=== PATIENT | female | born 1975 | race Caucasian/White ===

== ENCOUNTER 2020-06-30 22:46 | Day surgery (SDC) | payer OTHER, SELFPAY ==
[2020-06-30 22:46] VITALS: BP 145/90; PULSE 85; RESP 22; TEMP 36.8; O2SAT 100; BMI 36.1
[2020-06-30 23:00] VITALS: BP 141/80; PULSE 94; RESP 15; O2SAT 98
[2020-06-30 23:01] VITALS: BMI 36.1
[2020-06-30 23:12] LABS: Chloride 104 mmol/L (98-107); Sodium 137 mmol/L (136-145)
[2020-06-30 23:14] LABS: Amylase 80 U/L (30-110)
[2020-06-30 23:15] LABS: Alanine Aminotransferase 19 U/L (12-78); Albumin Level 4.5 g/dl (3.5-5.0); Alkaline Phosphatase 121 U/L (38-126); Aspartate Amino Transferase 30 U/L (14-36); Bilirubin,Direct 0.3 mg/dl (0.0-0.4); Bilirubin,Indirect 0.4 mg/dL (0.0-0.9); Bilirubin,Total 0.7 mg/dl (0.2-1.3); Bilirubin,Unconjugated 0.4 mg/dL (0.0-1.1); Blood Urea Nitrogen 19 mg/dl (7-17); Calcium 9.7 mg/dl (8.4-10.2); Carbon Dioxide 24 mmol/L (22.0-30.0); Creatinine Clearance Estimated 180 mL/min (50-200); Estimated Glomerular Filt Rate 91 ml/min (>60); GFR (African American) 110 ML/MIN (>60); Glucose 100 mg/dl (74-100)
[2020-06-30 23:16] LABS: Basophils # 0.1 K/mm3 (0-0.2); Eosinophils # 0.2 K/mm3 (0.0-0.4); Eosinophils % 1.6 % (0.1-12.0); Hematocrit 51.8 % (37.0-47.0); Hemoglobin 17.1 g/dL (12.2-16.2); Lymphocytes # 4.2 K/mm3 (0.7-4.5); Lymphocytes % 39.1 % (10-50); Mean Corpuscular Hemoglobin 31.8 pg (27.0-31.2); Mean Corpuscular Volume 96.3 fl (81-99); Mean Platelet Volume 9.6 fl (7.4-10.4); Monocytes # 0.6 K/mm3 (0.1-1.0); Monocytes % 5.9 % (1.7-9.3); Neutrophils # 5.6 K/mm3 (1.8-7.8); Neutrophils % 52.3 % (37.0-80.0); Platelet Count 211 K/mm3 (142-424); Red Blood Count 5.38 M/mm3 (4.20-5.40); White Blood Count 10.7 K/mm3 (4.8-10.8)
[2020-06-30 23:30] VITALS: BP 132/82; PULSE 83; RESP 14; O2SAT 97
[2020-06-30 23:34] LABS: Troponin I < 0.01 ng/ml (0.00-0.034)
[2020-06-30 23:38] LABS: Coronavirus 19 IgG Antibody Negative (Negative); Coronavirus 19 IgM Antibody Negative (Negative)
--- NOTE | 2020-06-30 23:47 | HMH.EDCP ---
ED Disposition Clinical Impression: Obesity (BMI 30-39.9) Chest pain Qualifiers: Chest pain type: precordial pain Qualified Code(s): R07.2 - Precordial pain Disposition: Admitted as Observation Condition on Discharge: Good Referrals: PCP,No [Primary Care Provider] - - Critical Care Critical Care Time: No Attestation: On 06/30/20, the high probability of a clinically significant, sudden or life threatening deterioration of the following system(s) required my full and direct attention, intervention and personal management. The time I documented below is in addition to time spent performing reported procedures but includes the following listed in this critical care notation. Medical Decision Making - Medical Records Medical records reviewed: Yes: I reviewed the patient's medical records. - [place] Inquiry Pt receiving controlled substance: No Vital Signs: 06/30/20 22:46 06/30/20 23:00 06/30/20 23:30 Temperature 98.2 F Temperature Source Oral Pulse Rate [Right Radial] 85 94 H 83 Respiratory Rate 22 15 14 Blood Pressure [Right Arm] 145/90 H 141/80 H 132/82 Blood Pressure Mean [Right Arm] 108 100 98 Blood Pressure Source [Right Arm] Automatic Cuff Automatic Cuff Blood Pressure Position [Right Arm] Supine Supine 02 Sat by Pulse Oximetry 100 98 97 Oxygen Delivery Method Room Air Room Air Room Air - Lab Data Lab results reviewed: Yes: I reviewed the patient's lab results. Lab Results 06/30/20 22:50: WBC 10.7, RBC 5.38, Hgb 17.1 H, Hct 51.8 H, MCV 96.3, MCH 31.8 H, MCHC 33.0, RDW 14.0, Plt Count 211, MPV 9.6, Neut % (Auto) 52.3, Lymph % (Auto) 39.1, [place] % (Auto) 5.9, Eos % (Auto) 1.6, Baso % (Auto) 1.0, Neut # (Auto) 5.6, Lymph # (Auto) 4.2, [place] # (Auto) 0.6, Eos # (Auto) 0.2, Baso # (Auto) 0.1 06/30/20 22:50: Sodium 137, Potassium 4.0, Chloride 104, Carbon Dioxide 24, Anion Gap 13.0, BUN 19 H, Creatinine 0.70, Estimated Creat Clear 180, Estimated GFR 91, Est GFR ( Amer) 110, Glucose 100, Calcium 9.7, Total Bilirubin 0.7, Direct Bilirubin 0.3, Conjugated Bilirubin 0.0, Indirect Bilirubin 0.4, Unconjugated Bilirubin 0.4, AST 30, ALT 19, Alkaline Phosphatase 121, Troponin I < 0.01, Total Protein 8.0, Albumin 4.5, Amylase 80 06/30/20 22:50: Lipase 182 06/30/20 22:50: SARS-CoV-2 IgG Ab (Rapid) Negative, SARS-CoV-2 IgM Ab (Rapid) Negative 06/30/20 22:50: ESR 6 06/30/20 22:50: C-Reactive Protein 1.4 07/01/20 00:00: Triglycerides 231 H, Cholesterol 200, LDL Cholesterol Direct 103.38, VLDL Cholesterol 46 H, HDL Cholesterol 62 H, Cholesterol/HDL Ratio 3.2 Result diagrams: 06/30/20 22:50 06/30/20 22:50 Orders (Tests/Meds): ED MEDICATIONS Generic Name Dose Route Start Last Admin Trade Name Frenori PRN Reason Stop Dose Admin Sodium Chloride 1,000 mls @ 999 mls/hr 06/30/20 23:15 06/30/20 23:10 Sod Chlor 0.9% 1000ml Bag IV 07/01/20 00:15 999 mls/hr .Q1H1M ROSIE Administration Sodium Chloride 8 ml 06/30/20 23:04 Sodium Chloride 0.9% 10ml Vial IV 07/30/20 23:03 NEEDED PRN dilute pepcid Discontinued Medications Generic Name Dose Route Start Last Admin Trade Name Frenori PRN Reason Stop Dose Admin Aspirin 324 mg 06/30/20 23:04 06/30/20 23:00 Aspirin 81mg Chewable Tablet PO 06/30/20 23:05 324 mg ONCE ONE Administration Famotidine 20 mg 06/30/20 23:04 06/30/20 23:10 Famotidine 20mg/2ml Vial IV 06/30/20 23:05 20 mg ONCE ONE Administration Ketorolac Tromethamine 30 mg 06/30/20 23:04 06/30/20 23:10 Ketorolac 30mg/Ml Vial IV 06/30/20 23:05 30 mg ONCE ONE Administration Metoclopramide HCl 10 mg 06/30/20 23:04 06/30/20 23:10 Metoclopramide Hcl 10mg/2ml Vial IVP 06/30/20 23:05 10 mg ONCE ONE Administration Morphine Sulfate 4 mg 07/01/20 00:03 07/01/20 00:06 Morphine 4mg/Ml Syringe IV 07/01/20 00:04 4 mg ONCE ONE Administration Nitroglycerin 1 gm 06/30/20 23:36 06/30/20 23:39 Nitroglycerin 1 Gm Ointment TD 06/30/20 23:
[2020-06-30 23:48] LABS: Lipase 182 U/L (23-300)
--- NOTE | 2020-06-30 23:58 | ECG_ITS ---
APPROVED REPORT Exam: Resting ECG HR:94 bpm ECG Measurements Heart Rate 94 AXES CA 130 P QRSd 96 QRS -10 QT 370 T 52 QTc 462 Conclusion Normal sinus rhythm Late r wave progression Abnormal ECG Electronically signed by : Geoffrey Barrios, 07/01/2020 06:25:12
[2020-07-01] VITALS (18 sets, daily range): BP systolic 100–159; BP diastolic 44–85; PULSE 64–88; RESP 12–20; TEMP 36.6; O2SAT 93–100
--- NOTE | 2020-07-01 | IR_ITS ---
APPROVED REPORT Patient Location: Inpatient Car Dropper: MICHAEL Joe RT (R) PROCEDURES Left heart catheterization Left ventriculogram Selective coronary angiogram INDICATION Unstable angina Informed consent was obtained prior to the procedure. COMPLICATIONS none Estimated Blood Loss: less than 10 mls TECHNIQUE One percent lidocaine was used to anesthetize the right groin. The right femoral artery was accessed via the Seldinger technique. A 4-Faroese sheath was placed in the right femoral artery. The JL-4 and JR-4 catheter was also used to perform left heart catheterization left ventriculogram and selective coronary angiogram. At the end of the procedure the patient was transferred to the post-op holding area in stable condition for arterial sheath removal. ANGIOGRAPHIC RESULTS The left main artery Normal The left anterior descending artery Normal The circumflex artery Normal The right coronary artery Dominant normal The [place] ventriculogram reveals Slightly dilated with ejection fraction of 55% The left ventricular end-diastolic pressure 20 mmHg IMPRESSION Normal coronary arteries Slightly dilated ventricle with ejection fraction 55% which is slightly reduced Elevated LVEDP PLAN 1. Formal echocardiogram is warranted 2. Patient may be experiencing early myocarditis and should be monitored. I recommend a sed rate and a CRP level 3. Low-dose diuretics for diastolic dysfunction 4. Risk factor modification 5. Follow-up in cardiology clinic within the next 2 weeks and repeat echocardiogram Electronically signed by : Rajesh Saeed, 07/01/2020 12:51:16
--- NOTE | 2020-07-01 | PC.NURSE ---
pt is alert and oriented w.f. presenting earlier in ed for complaints of cp. vss. throughout stay. resting quietly with lights off in room. verbalizes understanding of having been admitted although technically physically still in ed room 1. discussed plan of care and cardiac consult for morning. understands serial troponins ordered as well as morning labs. lungs clear. resp e/u. abd soft, non tender, non distended. independent with toileting. moves all extremities without issue. call blanco placed in reach, and side rails up x 2 for safety. no complaints offered or needs voiced. I will try to rest .
[2020-07-01 00:02] LABS: C-Reactive Protein 1.4 mg/L (0-4)
--- NOTE | 2020-07-01 00:07 | XR_ITS ---
PROCEDURE: XR CHEST PORTABLE CLINICAL HISTORY: chest pain COMPARISON: No exams were available for comparison FINDINGS: The cardiomediastinal silhouette and pulmonary vascularity are within normal limits. Increased markings are present in the right infrahilar region suggesting an area of atelectasis or infiltrate versus superimposed vascular structures. PA and lateral chest may provide further evaluation. The remaining lungs are clear. No acute bony abnormalities. IMPRESSION: Possible right infrahilar infiltrate Dictated by: Rodo Smith MD 07/01/2020 05:31 Rodo Smith MD in [place] 07/01/2020 05:31
[2020-07-01 00:18] LABS: Cholesterol 200 mg/dl (140-200); Triglycerides 231 mg/dl (30-150); VLDL Cholesterol 46 mg/dL (0-40)
[2020-07-01 00:19] LABS: Chol/HDL Ratio 3.2 (1-3.5); HDL Cholesterol 62 mg/dl (40-60)
[2020-07-01 00:24] LABS: Erythrocyte Sedimentation Rate 6 mm/hr (0-20)
[2020-07-01 00:29] LABS: Direct LDL Cholesterol 103.38 mg/dL (100-129)
--- NOTE | 2020-07-01 01:35 | PC.NURSE ---
resting quietly. no complaints.
--- NOTE | 2020-07-01 02:01 | PC.NURSE ---
blood collected and sent to lab for troponin. no issues
[2020-07-01 02:45] LABS: Troponin I < 0.01 ng/ml (0.00-0.034)
--- NOTE | 2020-07-01 07:07 | CA_ITS ---
APPROVED REPORT EXAM: Comprehensive 2D, Doppler, and color-flow Echocardiogram Search Engine Marketing Strategist: Jeannette Manuel, RT(R) Ht: 5 ft 9 in Wt: 245lbs BSA: 2.25 BP: 132/82 mmHg Indications: CP, Palpitations, SOB, obesity, family history of HD 2D Dimensions LVOT 2.29 cm (M/F) 1.5-2.5 M-Mode Dimensions RVDd 2.83 cm (0.9-2.6) LA Diam 3.80 cm (1.9-4.0) LVDd 4.87 cm (3.5-5.7) Ao Diam 3.41 cm (2.0-3.7) LVDs 3.33 cm (3.5-5.7) IVSd 1.00 cm (0.6-1.1) PWd 0.97 cm (0.6-1.1) EF (Teich) 59.40% FS 31.60% EDV (Teich) 111.20 mL ESV (Teich) 45.10 mL LV Diastology E Decel Time 177.00 (160-240 msec) E/A Ratio 1.0 MED E' 7.00 (< 7 cm/sec) E'/MED E' Ratio 11.13 (>14) LAT E' 11.00 (<10 cm/sec) E/LAT E' Ratio 7.08 (>14) Mitral Valve MV E Max Tan. 78.00 (40-130 cm/s) MV A Velocity 77.00 (40-130 cm/s) E/A Ratio 1.02 MV Decel. Time 177.00 (160-240 ms) MV PHT 52.00 ms Left Ventricle Left atrium is normal size, left ventricle is normal size, there is no concentric left ventricular hypertrophy, visually estimated ejection fraction 55% with no regional wall motion abnormality, diastolic parameters are within normal range. Right Ventricle Right atrium and right ventricle are normal size and contractility. Aortic Valve Aortic valve is minimally thickened and fibrosed, there is no aortic stenosis or aortic insufficiency. Mitral Valve Mitral valve is grossly normal, there is trace mitral regurgitation. Tricuspid Valve Tricuspid valve is grossly normal, there is trace tricuspid regurgitation. Tricuspid regurgitation jet velocity is inadequate for calculation of the right ventricular systolic pressure. Pulmonic Valve Pulmonic valve is poorly visualized. Great Vessels Aortic root is normal size. Pericardium No significant pericardial effusion noted. Conclusion 1. Normal left ventricular size, preserved left ventricular systolic function, visually estimated ejection fraction 55% with no regional wall motion abnormality, diastolic parameters are within normal range. 2. Trace mitral and tricuspid regurgitation. 3. No significant pericardial effusion noted. Electronically signed by : Haroldo Mathew, 07/02/2020 13:52:29
--- NOTE | 2020-07-01 07:23 | PC.NURSE ---
morning labs drawn. pt resting offers no c/o at present. pt updated on plan of care
[2020-07-01 07:42] LABS: Basophils # 0.1 K/mm3 (0-0.2); Eosinophils # 0.2 K/mm3 (0.0-0.4); Mean Corpuscular Volume 98.7 fl (81-99); Monocytes # 0.5 K/mm3 (0.1-1.0); Red Cell Distribution Width 13.9 % (11.5-17.5)
--- NOTE | 2020-07-01 07:50 | PC.NURSE ---
Echo in progress at this time.
[2020-07-01 07:54] LABS: Anion Gap 7.5 mEq/L (5-15); Basophils % 0.8 % (0.1-2.0); Blood Urea Nitrogen 17 mg/dl (7-17); Carbon Dioxide 28 mmol/L (22.0-30.0); Chloride 106 mmol/L (98-107); Creatinine Clearance Estimated 157 mL/min (50-200); Eosinophils % 2.1 % (0.1-12.0); Estimated Glomerular Filt Rate 78 ml/min (>60); GFR (African American) 94 ML/MIN (>60); Glucose 98 mg/dl (74-100); Hematocrit 46.5 % (37.0-47.0); Lymphocytes # 2.5 K/mm3 (0.7-4.5); Lymphocytes % 32.1 % (10-50); Magnesium 2.2 mg/dl (1.6-2.3); Mean Corpuscular HGB Conc 31.3 g/dL (31.8-35.4); Mean Corpuscular Hemoglobin 30.9 pg (27.0-31.2); Mean Platelet Volume 9.4 fl (7.4-10.4); Monocytes % 5.9 % (1.7-9.3); Neutrophils # 4.5 K/mm3 (1.8-7.8); Neutrophils % 59.1 % (37.0-80.0); Platelet Count 170 K/mm3 (142-424); Potassium 4.5 mmoL/L (3.5-5.1); Red Blood Count 4.71 M/mm3 (4.20-5.40); Sodium 137 mmol/L (136-145); White Blood Count 7.7 K/mm3 (4.8-10.8)
[2020-07-01 07:55] LABS: Calcium 8.6 mg/dl (8.4-10.2)
[2020-07-01 07:56] LABS: Hemoglobin 14.6 g/dL (12.2-16.2)
[2020-07-01 08:07] LABS: Troponin I < 0.01 ng/ml (0.00-0.034)
--- NOTE | 2020-07-01 08:48 | PC.NURSE ---
Per cardiology pt is to have cath today
--- NOTE | 2020-07-01 09:05 | HMH.CNCARD ---
History of Present Illness Consult date: 07/01/20 Requesting physician: Jose R Finch Consult reason: chest pain Chief complaint: chest pain History of present illness: This 44-year-old white female who presented to the emergency department with complaints of chest pain. She states yesterday she woke up and did not feel well. She had a headache and checked her blood pressure. Her blood pressure was elevated in the 160s over 124. She took 100 mg of her losartan and her blood pressure remained elevated. She states that she then started having substernal tightness and burning that radiated to the left side of her neck her left upper extremity and her jaw. She states that she had numbness in her left arm associated with the left arm pain. She states that she got profoundly short of breath, nauseated and had some vomiting. She was also diaphoretic. She also noticed racing of her heart as well. The patient states that her symptoms were so severe that she decided to come into the emergency department. She states that she did not have any improvement in her chest pain and tightness until she was given nitro paste. She states the Nitropaste worked for her pretty well until this morning when she got up to go to the bathroom and she had recurrence of her chest tightness when she started walking. She states that her left arm is heavy and numb as well this morning. She denies any history of hypertension, hyperlipidemia or diabetes. She does not smoke. She does have a family history of ischemic heart disease. She states that her mother had an OR in her 50s. She has a sister with coronary artery disease and a stroke as well. She states that most family members on her mother and father's side have a history of coronary artery disease. She denies any fever, chills, diarrhea, PND or orthopnea. Patient states that she had tachycardia back in 2013 and she was diagnosed with anxiety, but had no cardiac work-up at that time. [facility] History I have reviewed the patient's past medical history: Yes Medical History: Reports:: Anxiety Denies:: Cancer, Diabetes Mellitus Type 1, Diabetes Mellitus Type 2, MRSA *Have you ever received a pneumonia vaccine?: No *Have you received a flu vaccine this season?: No Amputation: No Fractures: No - *Social History Alcohol Intake: never *Occupational Status:: employed *Travel in the last 8 weeks: None Family Hx:: Coronary Artery Disease, Diabetes, Heart Attack, Hyperlipidemia, Hypertension, Stroke Meds Home Medications Medication Instructions Recorded Confirmed Type No Known Home Medications 06/30/20 06/30/20 History Allergies Allergy/AdvReac Type Severity Reaction Status Date / Time INGREDIENT: NO KNOWN - NO Allergy Unknown Uncoded 06/06/17 15:04 KNOWN DRUG ALLERGY Exam Vital signs and Labs for Last 24 Hours: Temp Pulse Resp BP Pulse Ox 98.2 F 75 14 102/62 L 98 06/30/20 22:46 07/01/20 02:30 07/01/20 02:30 07/01/20 02:30 07/01/20 02:30 Laboratory Results - last 24 hr 06/30/20 22:50: WBC 10.7, RBC 5.38, Hgb 17.1 H, Hct 51.8 H, MCV 96.3, MCH 31.8 H, MCHC 33.0, RDW 14.0, Plt Count 211, MPV 9.6, Neut % (Auto) 52.3, Lymph % (Auto) 39.1, [place] % (Auto) 5.9, Eos % (Auto) 1.6, Baso % (Auto) 1.0, Neut # (Auto) 5.6, Lymph # (Auto) 4.2, [place] # (Auto) 0.6, Eos # (Auto) 0.2, Baso # (Auto) 0.1 06/30/20 22:50: Sodium 137, Potassium 4.0, Chloride 104, Carbon Dioxide 24, Anion Gap 13.0, BUN 19 H, Creatinine 0.70, Estimated Creat Clear 180, Estimated GFR 91, Est GFR ( Amer) 110, Glucose 100, Calcium 9.7, Total Bilirubin 0.7, Direct Bilirubin 0.3, Conjugated Bilirubin 0.0, Indirect Bilirubin 0.4, Unconjugated Bilirubin 0.4, AST 30, ALT 19, Alkaline Phosphatase 121, Troponin I < 0.01, Total Protein 8.0, Albumin 4.5, Amylase 80 06/30/20 22:50: Lipase 182 06/30/20 22:50: SARS-CoV-2 IgG Ab (Rapid) Negative, SARS-CoV-2 IgM Ab (Rapid) Negative 06/30/20 22:50: ESR 6 06/30/20 22:50: C-Reacti
--- NOTE | 2020-07-01 13:16 | HMH.HPDC ---
General - General Admission date:: 07/01/20 Discharge date: 07/01/20 *Admission Date: 07/01/20 *Chief complaint: Chest Pain *History of present illness: This 44-year-old white female who presented to the emergency department with complaints of chest pain. She states yesterday she woke up and did not feel well. She had a headache and checked her blood pressure. Her blood pressure was elevated in the 160s over 124. She took 100 mg of her losartan and her blood pressure remained elevated. She states that she then started having substernal tightness and burning that radiated to the left side of her neck her left upper extremity and her jaw. She states that she had numbness in her left arm associated with the left arm pain. She states that she got profoundly short of breath, nauseated and had some vomiting. She was also diaphoretic. She also noticed racing of her heart as well. The patient states that her symptoms were so severe that she decided to come into the emergency department. She states that she did not have any improvement in her chest pain and tightness until she was given nitro paste. She states the Nitropaste worked for her pretty well until this morning when she got up to go to the bathroom and she had recurrence of her chest tightness when she started walking. She states that her left arm is heavy and numb as well this morning. She denies any history of hypertension, hyperlipidemia or diabetes. She does not smoke. She does have a family history of ischemic heart disease. She states that her mother had an NV in her 50s. She has a sister with coronary artery disease and a stroke as well. She states that most family members on her mother and father's side have a history of coronary artery disease. She denies any fever, chills, diarrhea, PND or orthopnea. Patient states that she had tachycardia back in 2013 and she was diagnosed with anxiety, but had no cardiac work-up at that time. [facility] History I have reviewed the patient's past medical history: Yes Medical History: Reports:: Anxiety Denies:: Cancer, Diabetes Mellitus Type 1, Diabetes Mellitus Type 2, MRSA *Have you ever received a pneumonia vaccine?: Yes *Have you received a flu vaccine this season?: No Other Surgeries: Yes: Cholecystectomy, , Tubal Ligation Amputation: No Fractures: No - *Social History Last grade of school completed: Some college Smoking Status: Never smoker Alcohol Intake: never *Occupational Status:: employed Household Members: spouse *Travel in the last 8 weeks: None - Psychiatric History Pschychiatric History:: Reports:: Anxiety Family Hx:: Coronary Artery Disease, Diabetes Review of Systems - Review of Systems Review of systems:: pertinent systems reviewed and negative unless documented below - Constitutional Denies anorexia, Denies lack of energy - Eyes Denies blind spots, Denies loss of vision - ENT Denies dry mouth, Denies nosebleed - *Cardiovascular Reports chest pain, Reports chest pain at rest, Reports shortness of breath - *Respiratory Reports shortness of breath, Denies change in phlegm color, Denies chest congestion - *Gastrointestinal Denies abdominal pain, Denies belching - *Genitourinary Denies abnormal periods, Denies blood in urine - *Musculoskeletal Denies abnormal walking, Denies muscle weakness - Integumentary/Breasts Denies hair loss, Denies non-healing lesions - *Neurologic Denies tingling/numbness/burning sensations, Denies seizure-like activity - Psychiatric Denies behavioral changes, Denies mood swings - Endocrine Denies cold intolerance, Denies heat intolerance - Hematologic/Lymphatic Denies easy bleeding, Denies easy bruising - Allergic/Immunologic Denies itchy eyes, Denies hives Exam Vital signs and Labs for Last 24 Hours: Temp Pulse Resp BP Pulse Ox 98 F 74 18 103/64 L 100 07/01/20 09:38 07/01/20 09:38 07/01/20 09:38 07/01/20 09:38
[2020-07-01 15:46] LABS: Erythrocyte Sedimentation Rate 8 mm/hr (0-20)
== END 2020-07-01 17:25 | disposition home or self-care (01) ==
LOC: ER 07-01 00:55 → 2ND 07-01 09:16 → CATHLAB 07-01 17:12
PROVIDERS: Internal Medicine; Nurse Practitioner Family; Emergency Provider Emergency Medicine; Visit Provider Emergency Medicine
DX: I25.110 Atherosclerotic heart disease of native coronary artery with unstable angina pectoris (principal); Z82.49 Family history of ischemic heart disease and other diseases of the circulatory system; Z79.899 Other long term (current) drug therapy
CPT/HCPCS: 71045; 80048; 80061; 80076; 82150; 83690; 83735; 84484; 85025; 85651; 86140; 86328; 93005; 93306; 93458; 96365; 96375; 96376; 99152; 99153; 99284; C1725; C1769; J1644; J2405; Q9967

== ENCOUNTER → 2020-07-13 10:09 | Outpatient (CLI) | payer OTHER, SELFPAY ==
[2020-07-13 11:10] LABS: Chloride 102 mmol/L (98-107); Potassium 4.7 mmoL/L (3.5-5.1); Sodium 140 mmol/L (136-145)
[2020-07-13 11:13] LABS: Anion Gap 13.7 mEq/L (5-15); Blood Urea Nitrogen 15 mg/dl (7-17); Carbon Dioxide 29 mmol/L (22.0-30.0); Estimated Glomerular Filt Rate 78 ml/min (>60); GFR (African American) 94 ML/MIN (>60); Glucose 105 mg/dl (74-100)
[2020-07-13 11:18] LABS: C-Reactive Protein 2.1 mg/L (0-4)
[2020-07-13 11:53] LABS: Erythrocyte Sedimentation Rate 4 mm/hr (0-20)
== END ==
PROVIDERS: Visit Provider Nurse Practitioner Family
DX: R07.2 Precordial pain (principal); R06.02 Shortness of breath; E66.9 Obesity, unspecified
CPT/HCPCS: 36415; 80048; 85651; 86140

== ENCOUNTER → 2020-07-20 10:40 | Outpatient (CLI) | payer OTHER, SELFPAY ==
--- NOTE | 2020-07-20 10:41 | CA_ITS ---
APPROVED REPORT EXAM: Comprehensive 2D, Doppler, and color-flow Echocardiogram [employer] Helicopter Crew Chief: Cyn Cook CRT Ht: 5 ft 9 in Wt: 245lbs BSA: 2.25 BP: 132/82 mmHg Indications: SOB, EF CHECK, R/O MYOCARDITIS M-Mode Dimensions LVDd 4.37 cm (3.5-5.7) LVDs 2.90 cm (3.5-5.7) EF (Teich) 62.70% FS 33.60% EDV (Teich) 86.30 mL ESV (Teich) 32.20 mL Conclusion 1. Limited 2D echocardiogram obtained to evaluate left ventricular systolic function. 2. Normal left ventricular size, visually estimated ejection fraction 55% with no obvious regional wall motion abnormality. 3. No significant pericardial effusion noted. Electronically signed by : Haroldo Mathew, 07/20/2020 19:34:43
== END ==
PROVIDERS: PCP Nurse Practitioner Family; Visit Provider Nurse Practitioner Family
DX: R07.2 Precordial pain (principal); R06.02 Shortness of breath; E66.9 Obesity, unspecified; G47.33 Obstructive sleep apnea (adult) (pediatric)
CPT/HCPCS: 93308; 95806

== ENCOUNTER → 2020-07-27 08:34 | Outpatient (CLI) | payer OTHER, SELFPAY ==
[2020-07-27 09:35] LABS: Chloride 102 mmol/L (98-107); Potassium 4.5 mmoL/L (3.5-5.1); Sodium 139 mmol/L (136-145)
[2020-07-27 09:38] LABS: Anion Gap 11.5 mEq/L (5-15); Blood Urea Nitrogen 18 mg/dl (7-17); Calcium 9.9 mg/dl (8.4-10.2); Carbon Dioxide 30 mmol/L (22.0-30.0); Estimated Glomerular Filt Rate 68 ml/min (>60); GFR (African American) 82 ML/MIN (>60); Glucose 96 mg/dl (74-100)
== END ==
PROVIDERS: Visit Provider Nurse Practitioner Family
DX: R07.9 Chest pain, unspecified (principal); R06.02 Shortness of breath; R94.30 Abnormal result of cardiovascular function study, unspecified; I51.89 Other ill-defined heart diseases; E66.9 Obesity, unspecified; G47.9 Sleep disorder, unspecified; R40.0 Somnolence
CPT/HCPCS: 36415; 80048